=== PATIENT | female | born 1990 | race Two or more races ===

== ENCOUNTER → 2016-12-16 | Outpatient (CLI) | payer BC, OTHER ==
[2014-12-18 14:39] VITALS: BP 116/61
[~2016-12-16] MED LIST: VENTOLIN HFA18 GM IH
--- NOTE | 2016-12-16 14:14 | RAD ---
Examination: Ultrasound History: History of thyroid nodule follow-up Comparison: 12/18/2014 Findings: The right lobe of thyroid gland measures 5.0 x 1.6 x 2.1 cm The left lower thyroid gland measures 9.0 x 1.7 x 2.2 cm The isthmus measures 3.2 mm In the inferior aspect of the right lobe of the thyroid gland there is a 1.2 x 1.8 x 1.1 cm solid-appearing echogenicity (prior 1.0 x 0.9 x 0.9 cm There is some minimal vascular flow within. In the inferior aspect of the left lobe of the thyroid gland there is a 4.5 x 2.5 x 2.6 cm solid appearing nodule with vascular flow within (prior 4.6 x 3.6 x 3.7 cm). Impression 1. Thyroid nodules as described above. The right lobe thyroid nodule is only slightly increased in size however the left thyroid nodule is similar to prior exam from 2014.
== END | disposition home or self-care (01) ==
LOC: US 12:23
PROVIDERS: ATTEND Physician Assistant
DX: E04.2 Nontoxic multinodular goiter (principal)
CPT/HCPCS: 76536

== ENCOUNTER → 2018-07-16 | Outpatient (CLI) | payer OTHER ==
[2014-12-18 14:39] VITALS: BP 116/61
--- NOTE | 2018-07-16 13:28 | [facility]IC ---
Examination: CT soft tissue neck without contrast HISTORY: History of thyroid nodule, dysphagia COMPARISON: None available TECHNIQUE: Axial CT images of the soft tissue neck were performed with contrast. Coronal and sagittal reformats are performed. Exposure: One or more of the following individualized dose reduction techniques were utilized for this examination: 1. Automated exposure control 2. Adjustment of the mA and/or kV according to patient size 3. Use of iterative reconstruction technique FINDINGS: The visualized parotid gland grossly appears unremarkable The visualized vallecula, piriform sinuses grossly appears unremarkable Small subcentimeter bilateral cervical lymph nodes are identified. Abutting the inferior pole of the left lobe of thyroid gland , there is a elliptical shaped 3.5 cm hypodense nodule containing faint calcifications extending inferiorly. In the right lower thyroid gland there is a hypodense nodule identified measuring 1.3 cm. The apical lungs are clear. No evidence of lytic bony destructive lesion. No evidence of lytic bony destructive lesion IMPRESSION: 1. A 3.5 cm hypodense nodule containing faint calcifications identified extending from the inferior pole of the left lobe of the thyroid gland. This could be a thyroid nodule extending inferiorly or a faintly calcified mediastinal lymph node. A smaller 1.3 cm hypodense nodule identified in the right lobe of thyroid gland. Electronically signed by: Antoni Avelar MD (07/16/2018 1:25 PM) [id number]
== END | disposition home or self-care (01) ==
LOC: KCIC CT 12:42
PROVIDERS: ATTEND Internal Medicine
DX: E04.2 Nontoxic multinodular goiter (principal)
CPT/HCPCS: 70490